=== PATIENT | male | born 1960 | race Caucasian/White ===

== ENCOUNTER 2018-12-07 05:21 | Day surgery (SDC) | payer OTHER ==
[~2018-12-07] VITALS: Ht 182.9 cm; Wt 95.3 kg
--- NOTE | ~2018-12-07 | OP ---
PATIENT NAME: FRANDY CHAVEZ MEDICAL RECORD: [id number] :62 LOCATION:D.OPS ADMISSION DATE: SURGEON: VINOD BAKER DPM DATE OF OPERATION: 12/07/2018 PREOPERATIVE DIAGNOSES: 1. Hallux abductovalgus, right foot. 2. Instability, right first met cuneiform joint. 3. Right second metatarsophalangeal joint plantar plate rupture. 4. Right second digit Hammertoe, proximal interphalangeal joint. POSTOPERATIVE DIAGNOSES: 1. Hallux abductovalgus, right foot. 2. Instability, right first met cuneiform joint. 3. Right second metatarsophalangeal joint plantar plate rupture. 4. Right second digit Hammertoe, proximal interphalangeal joint. PROCEDURES: 1. Right Moreno bunionectomy. 2. Right first metatarsal cuneiform joint fusion. 3. Right foot second metatarsal Elvis osteotomy. 4. Right plantar plate repair, second MPJ. 5. Right second digit PIPJ fusion. ANESTHESIA: Preoperative popliteal block per the anesthesia department as well as intraoperative general anesthesia. HEMOSTASIS: Right thigh tourniquet at 350 mmHg. PREOPERATIVE DETAILS: The patient was taken to the OR and placed on the operating table in supine position. This was followed by induction of general anesthesia. The right extremity was then prepped and draped in the usual aseptic technique followed by exsanguination and inflation of tourniquet. PROCEDURE #1: Right Moreno bunionectomy: A 15-blade was used to create an incision from the base of the proximal phalanx of the hallux proximally to the dorsal aspect of the medial cuneiform. The incision was deepened down through subcutaneous tissue to the first MPJ where an inverted L capsulotomy was performed. The medial capsular flap was reflected and the head of first metatarsal was delivered. A sagittal saw was then used to resect the medial eminence. Attention was then directed to the first interspace where a lateral release was performed. PROCEDURE #2: First met cuneiform joint fusion: The incision as described in #1 was carried down to the periosteum and the first met cuneiform joint was exposed and freed. A sagittal saw was used to resect the joint. Following resection of the joint, temporary K-wire was used. Good alignment was noted and a 5-hole plate was placed across the fusion site with one screw crossing the fusion site for excellent compression. There was noted to be excellent rigid internal fixation as well as alignment as verified by the C-arm. The wound was flushed. The second MPJ capsule was repaired with 2-0 Vicryl. The periosteum and deep tissue was repaired with 2-0 Vicryl. The subcutaneous tissue was reapproximated with 4-0 Rapide and the skin was closed with 4-0 Rapide in a subcuticular technique followed by Dermabond. OPERATIVE REPORT [id number] FRANDY CHAVEZ PROCEDURE #3: Elvis osteotomy, right second metatarsal: A 15-blade was used to create a curvilinear incision extending from the PIPJ of the second digit proximally across the second MPJ and approximately 2 more centimeters of the second metatarsal shaft. The incision was deepened down through subcutaneous tissue to the extensor longus tendon, which was transected in Z fashion. The extensor longus tendon was then freed from the dorsal aspect of the second MPJ. A linear capsulotomy was performed in the second MPJ and the head of the second metatarsal was delivered. A sagittal saw was then used to make a dorsal distal to plantar proximal cut through the metatarsal head and the capital fragment was pushed proximally and temporally fixated with a K-wire. A second K-wire was then placed in the proximal phalanx of the second digit. PROCEDURE #4: Plantar plate repair, right second MPJ: Upon initial inspection after placing a retractor over the wires and distracting the joint, there was noted to be a significant defect in the center aspect of the plantar plate with the flexor tendon exposed and visualized in the wound. At this time, a 15-blade was used to complete the tear across the base of the plantar aspect of the proximal phalanx of the second digit. Once this was achieved, a scorpion passer was used to pass FiberWire through the plantar plate. Two small drill holes were then made in the base of the proximal phalanx of the second digit and the FiberWire was passed up through the drill holes. At this time, the K-wires were removed. The Elvis osteotomy was then fixated with 2 popoff screws noting excellent alignment and fixation and rigidity. At this time, the digit was held in a slightly plantarflexed position and the FiberWire was tied on top of the second digit base of proximal phalanx reapproximating the plantar plate. Excellent alignment was noted following the repair. PROCEDURE #5: Right second PIPJ fusion. The incision as described above over the second ray was utilized to expose the PIPJ of the second digit. The extensor longus tendon was freed from the dorsal aspect of the PIPJ. A sagittal saw was used to resect the joint followed by application of a bone graft in the proximal phalanx as well as the middle phalanx of the hammer graft with the capital fragment being placed on top of the bone graft, noting excellent reduction of the hammertoe deformity and coaptation of the fusion site. The wound was flushed. The joint capsule of the second MPJ was reapproximated with 2-0 Vicryl. The extensor longus tendon was then repaired with 4-0 Rapide. The subcutaneous tissue was reapproximated with 4-0 Rapide and the skin was closed with 4-0 Rapide in a subcuticular technique followed by Dermabond. Adaptic, 4 x 4 and Conform were used to dress the wound followed by application of a modified Sauer compression dressing. Tourniquet was deflated. POSTOPERATIVE DETAILS: The patient tolerated the procedure well and left the OR with vital signs stable and vascular status at preoperative levels. The patient was transported to recovery per anesthesia in stable condition. TRANSINT:[id number] Voice Confirmation ID: [id number] DOCUMENT ID: [id number] OPERATIVE REPORT [id number] FRANDY CHAVEZ MCKAY DPM CC: [id number] DICTATION DATE: 12/07/18909 PRISON KEEPER: 12/07/18 1019 [facility] [address] [place] [address]
[~2018-12-07 05:21] MED LIST: COZAAR100 MG PO
[2018-12-07 06:10] LABS: HEMATOCRIT 45.4 % (42.0-54.0); HEMOGLOBIN 16.1 g/dL (13.5-17.5); MCHC 35.5 g/dL (31.0-37.0); MCV 87.5 fL (80.0-100.0); MEAN PLATELET VOLUME 9.2 fL (7.4-10.4); RBC 5.19 10x6/uL (4.20-6.10); RDW 12.6 % (11.5-14.5); WBC 13.8 10x3/uL (4.8-10.8)
[2018-12-07 06:14] VITALS: BP 152/80; Ht 182.9 cm; Wt 95.3 kg
--- NOTE | 2018-12-07 10:22 | NUR ---
1020 FL DIET SERVED. DRESSING CDI. DISCUSSED NON WEIGHT BEARING AND OBTAINING CRUTCHES. STATES HAS A KNEE WALKER AT HOME.
== END 2018-12-07 11:20 | disposition home or self-care (01) ==
LOC: D.OPS 05:21 → D.PAN 07:00 → D.OPS 11:20
PROVIDERS: Anesthesiology; ATTEND Podiatrist
DX: M20.11 Hallux valgus (acquired), right foot (principal); M25.374 Other instability, right foot; S96.811A Strain of other specified muscles and tendons at ankle and foot level, right foot, initial encounter; X58.XXXA Exposure to other specified factors, initial encounter; M20.41 Other hammer toe(s) (acquired), right foot; Z01.812 Encounter for preprocedural laboratory examination